=== PATIENT | male | born 1955 | race Caucasian/White ===

== ENCOUNTER 2016-10-31 12:09 | Inpatient (IN) | payer MEDICARE, OTHER ==
[~2016-10-31] VITALS: Ht 167.6 cm; Wt 63.5 kg
[~2016-10-31 12:09] MED LIST: ALDACTONE25 MG PO; ASPIR 8181 MG PO; BUMEX 1MG TABLET1 MG PO; COLACE 100MG C100 MG PO; COREG 3.125M3.125 MG PO; HABITROL 21 MG P1 EA TD; LASIX40 MG PO; LISINOPRIL2.5 MG PO; PLAVIX 75 MG TA75 MG PO; POTASSIUM CHLO20 ME1 PO; PROZAC20 MG PO
[2016-11-01 02:56] LABS: HEMOGLOBIN 11.9 gm/dl (14.0-17.5); RED BLOOD COUNT 4.11 M/UL (4.20-5.50)
[2016-11-01 03:19] LABS: BUN/CREATININE RATIO 25 (0-10)
[2016-11-02 04:51] LABS: BUN/CREATININE RATIO 25 (0-10)
[2016-11-03 04:35] LABS: BUN/CREATININE RATIO 28 (0-10)
--- NOTE | 2016-11-03 11:45 | NUR ---
Denies any dizziness, spots or weakness.
[2016-11-03] MEDS ORDERED: HABITROL 14 MG P1 EA TD (18:57)
[2016-11-03] MEDS ORDERED: ENTRESTO PO (18:58)
[2016-11-03] MEDS ORDERED: ALDACTONE25 MG PO (19:00)
[2017-03-26] MEDS ORDERED: HYDROXYZINE HCL10 MG PO (16:34)
[2017-03-26] MEDS ORDERED: KENALOG 0.5% CR15 GM EXT (16:41)
[2017-03-26] MEDS ORDERED: BUMEX 1MG TABLET1 MG PO (16:42)
[2017-03-26] MEDS ORDERED: LISINOPRIL2.5 MG PO (16:42)
== END 2016-11-03 20:00 | disposition home or self-care (01) | DRG 292 ==
LOC: PROG CARE 12:09
PROVIDERS: Nurse Practitioner; ADMIT Hospitalist
DX: I50.43 Acute on chronic combined systolic (congestive) and diastolic (congestive) heart failure (principal); I42.0 Dilated cardiomyopathy; N40.0 Benign prostatic hyperplasia without lower urinary tract symptoms; J44.9 Chronic obstructive pulmonary disease, unspecified; F32.9 Major depressive disorder, single episode, unspecified; E78.5 Hyperlipidemia, unspecified; I10 Essential (primary) hypertension; L30.9 Dermatitis, unspecified; I25.2 Old myocardial infarction; I27.2 Other secondary pulmonary hypertension; I25.119 Atherosclerotic heart disease of native coronary artery with unspecified angina pectoris; Z95.810 Presence of automatic (implantable) cardiac defibrillator; Z95.5 Presence of coronary angioplasty implant and graft; Z88.8 Allergy status to other drugs, medicaments and biological substances; Z82.49 Family history of ischemic heart disease and other diseases of the circulatory system; Z87.891 Personal history of nicotine dependence; Z91.14 Patient's other noncompliance with medication regimen; Z79.82 Long term (current) use of aspirin; Z79.899 Other long term (current) drug therapy
CPT/HCPCS: 36415; 71010; 71020; 80048; 80053; 80061; 82550; 82553; 82962; 83880; 84132; 84484; 85025; 93005; 94660

== ENCOUNTER 2016-11-07 12:47 | Inpatient (IN) | payer MEDICARE, OTHER ==
[~2016-11-07] VITALS: Ht 172.7 cm; Wt 56.3 kg
[~2016-11-07 12:47] MED LIST changes: +ENTRESTO PO; +HABITROL 14 MG P1 EA TD
[2016-11-07 13:33] LABS: HEMOGLOBIN 12.7 gm/dl (14.0-17.5); RED BLOOD COUNT 4.44 M/UL (4.20-5.50); WHITE BLOOD COUNT 8.5 K/UL (4.5-11.0)
[2016-11-07 13:58] LABS: BUN/CREATININE RATIO 23 (0-10)
[2016-11-07] MEDS ORDERED: K-DUR TAB 20 M20 MEQ PO (22:39)
[2016-11-07] MEDS ORDERED: ZESTRIL20 MG PO (22:39)
[2016-11-07] MEDS ORDERED: BUMEX 1MG TABLET1 MG PO ×3 (22:40→22:41)
[2016-11-07] MEDS ORDERED: COLACE 100MG C100 MG PO (22:41)
[2016-11-08 05:15] LABS: HEMOGLOBIN 12.3 gm/dl (14.0-17.5); RED BLOOD COUNT 4.31 M/UL (4.20-5.50); WHITE BLOOD COUNT 7.5 K/UL (4.5-11.0)
[2016-11-08 05:30] LABS: BUN/CREATININE RATIO 20 (0-10)
[2016-11-09 06:09] LABS: HEMOGLOBIN 12.1 gm/dl (14.0-17.5); RED BLOOD COUNT 4.33 M/UL (4.20-5.50); WHITE BLOOD COUNT 8.4 K/UL (4.5-11.0)
[2016-11-09 06:27] LABS: BUN/CREATININE RATIO 26 (0-10)
[2016-11-10 04:46] LABS: HEMOGLOBIN 12.9 gm/dl (14.0-17.5); RED BLOOD COUNT 4.58 M/UL (4.20-5.50)
[2016-11-10 05:17] LABS: BUN/CREATININE RATIO 21 (0-10)
[2016-11-11 04:16] LABS: HEMOGLOBIN 13.4 gm/dl (14.0-17.5); RED BLOOD COUNT 4.74 M/UL (4.20-5.50); WHITE BLOOD COUNT 9.9 K/UL (4.5-11.0)
[2016-11-11 04:41] LABS: BUN/CREATININE RATIO 18 (0-10)
[2016-11-12 04:31] LABS: BUN/CREATININE RATIO 18 (0-10)
[2016-11-13 04:22] LABS: HEMOGLOBIN 14.1 gm/dl (14.0-17.5); RED BLOOD COUNT 4.99 M/UL (4.20-5.50); WHITE BLOOD COUNT 12.2 K/UL (4.5-11.0)
[2016-11-13 04:47] LABS: BUN/CREATININE RATIO 23 (0-10)
[2016-11-14 04:55] LABS: BUN/CREATININE RATIO 30 (0-10)
[2016-11-14] MEDS ORDERED: IPRAT-ALBUT 0.5-3 ML INH (18:00)
[2016-11-14] MEDS ORDERED: TYLENOL 325MG325 MG PO (18:07)
[2017-03-26] MEDS ORDERED: HYDROXYZINE HCL10 MG PO (16:34)
[2017-03-26] MEDS ORDERED: KENALOG 0.5% CR15 GM EXT (16:41)
[2017-03-26] MEDS ORDERED: LISINOPRIL2.5 MG PO (16:42)
[2017-03-26] MEDS ORDERED: BUMEX 1MG TABLET1 MG PO (16:42)
== END 2016-11-14 18:30 | disposition home or self-care (01) | DRG 291 ==
LOC: ER1 12:47 → ZEROF 15:12 → MED SURG 4 15:12
PROVIDERS: Emergency Medicine; ADMIT Internal Medicine
DX: I11.0 Hypertensive heart disease with heart failure (principal); J96.01 Acute respiratory failure with hypoxia; N17.9 Acute kidney failure, unspecified; I50.23 Acute on chronic systolic (congestive) heart failure; J44.9 Chronic obstructive pulmonary disease, unspecified; E87.5 Hyperkalemia; F17.210 Nicotine dependence, cigarettes, uncomplicated; R00.0 Tachycardia, unspecified; I25.5 Ischemic cardiomyopathy; Z95.810 Presence of automatic (implantable) cardiac defibrillator; I25.10 Atherosclerotic heart disease of native coronary artery without angina pectoris; Z95.5 Presence of coronary angioplasty implant and graft; E78.5 Hyperlipidemia, unspecified; Z91.19 Patient's noncompliance with other medical treatment and regimen; F32.9 Major depressive disorder, single episode, unspecified; L30.9 Dermatitis, unspecified; N40.0 Benign prostatic hyperplasia without lower urinary tract symptoms; I25.2 Old myocardial infarction; Z98.890 Other specified postprocedural states; Z90.49 Acquired absence of other specified parts of digestive tract; Z79.82 Long term (current) use of aspirin; Z79.02 Long term (current) use of antithrombotics/antiplatelets; Z82.49 Family history of ischemic heart disease and other diseases of the circulatory system
CPT/HCPCS: ECHO; 36415; 36600; 71010; 80048; 80053; 82550; 82553; 82803; 82962; 83735; 83874; 83880; 84439; 84443; 84484; 85025; 85027; 93005; 93306; 94640; 94664; 96374; 99285; J7040

== ENCOUNTER 2017-02-06 10:11 | Observation (INO) | payer MEDICARE ==
[~2017-02-06] VITALS: Ht 172.7 cm; Wt 60.4 kg
[~2017-02-06 10:11] MED LIST changes: +IPRAT-ALBUT 0.5-3 ML INH; +K-DUR TAB 20 M20 MEQ PO; +TYLENOL 325MG325 MG PO; +ZESTRIL20 MG PO
[2017-02-06 11:34] LABS: HEMOGLOBIN 11.8 gm/dl (14.0-17.5); RED BLOOD COUNT 4.3 M/UL (4.20-5.50); WHITE BLOOD COUNT 3.2 K/UL (4.5-11.0)
[2017-02-07 06:35] LABS: HEMOGLOBIN 12.5 gm/dl (14.0-17.5); RED BLOOD COUNT 4.61 M/UL (4.20-5.50)
[2017-02-07 06:59] LABS: BUN/CREATININE RATIO 25 (0-10)
[2017-02-08 06:46] LABS: BUN/CREATININE RATIO 21 (0-10)
[2017-02-08] MEDS ORDERED: LASIX40 MG PO (12:58)
[2017-03-26] MEDS ORDERED: HYDROXYZINE HCL10 MG PO (16:34)
[2017-03-26] MEDS ORDERED: KENALOG 0.5% CR15 GM EXT (16:41)
[2017-03-26] MEDS ORDERED: BUMEX 1MG TABLET1 MG PO (16:42)
[2017-03-26] MEDS ORDERED: LISINOPRIL2.5 MG PO (16:42)
== END 2017-02-08 13:42 | disposition home or self-care (01) ==
LOC: ER1 10:11 → ZEROF 15:22 → M/S 15:22
PROVIDERS: Family Medicine; ADMIT Internal Medicine
DX: I50.23 Acute on chronic systolic (congestive) heart failure (principal); I42.0 Dilated cardiomyopathy; I25.10 Atherosclerotic heart disease of native coronary artery without angina pectoris; I11.0 Hypertensive heart disease with heart failure; E78.5 Hyperlipidemia, unspecified; J44.9 Chronic obstructive pulmonary disease, unspecified; I25.2 Old myocardial infarction; F17.210 Nicotine dependence, cigarettes, uncomplicated; Z91.14 Patient's other noncompliance with medication regimen; Z95.810 Presence of automatic (implantable) cardiac defibrillator; Z98.61 Coronary angioplasty status; Z79.82 Long term (current) use of aspirin; Z79.899 Other long term (current) drug therapy; Z90.49 Acquired absence of other specified parts of digestive tract; Z79.02 Long term (current) use of antithrombotics/antiplatelets; Z86.79 Personal history of other diseases of the circulatory system
CPT/HCPCS: 36415; 71020; 80048; 80053; 82550; 82553; 82570; 83735; 83874; 83880; 84156; 84484; 85025; 93005; 96374; 99285; G0378; J1940